=== PATIENT | female | born 1965 | race Caucasian/White ===

== ENCOUNTER 2016-03-14 05:58 | Emergency (ER) | payer BC ==
[~2016-03-14] VITALS: Ht 190.5 cm; Wt 113.7 kg
[~2016-03-14 05:58] MED LIST: ACTOS30 MG PO; ASCORBIC ACID500 M3 PO; AZELASTINE137 MCG/0. BOTH NARES; BENZONATATE100 MG PO; CYANOCOBAL1000 MCG/2 IM; DILAUDID4 MG PO; DuoNeb IH; ELIQUIS5 MG PO; ESTRACE42.5 GM VG; FLOVENT 11120 INHALA IH; FLOVENT 22120 INHALA IH; HYDROCODONE-CH473 ML PO; JANUMET 50/51 TABLET PO; MELOXICAM7.5 MG PO; METRONIDAZOLE45 G1 TP; MOBIC7.5 MG PO; NASONEX17 GM BOTH NARES; NASONEX17 GM NS; PANTOPRAZOLE SO40 MG PO; SINGULAIR10 MG PO; SPIRIVA RESPIMAT4 G1 IH; SPIRIVA1 INHALATI IH; SYNTHROID100 MCG PO; TYLENOL EXTRA500 MG PO; VITAMIN D31000 UNI2 PO; WARFARIN SODIUM1 MG PO; WARFARIN SODIUM5 MG PO; WARFARIN SODIUM6 MG PO; XANAX0.5 MG PO; XARELTO15 MG PO; XOPENEX HF200 INHALA IH; XOPENEX HFA15 GM IH; ZYRTEC10 M3 PO; prednisone PO
[2016-03-14 07:21] LABS: BASOPHIL COUNT 0.1 K/uL (0-0.1); EOSINOPHIL (%) 2.3 % (0-5); EOSINOPHIL COUNT 0.2 K/uL (0-0.3); HEMATOCRIT 36.7 % (36.0-46.0); IMMATURE GRANULOCYTE (%) 0.1 % (0.0-0.7); IMMATURE GRANULOCYTE COUNT 0.1 K/uL; LYMPHOCYTE COUNT 1.8 K/uL (1.0-2.8); MCH 27.8 PG (29.0-34.0); MCHC 34.1 G/DL (30.0-36.0); MCV 81.6 FL (83-99); MEAN PLAT.VOLUME 10.1 uM^3 (9.5-12.4); MONOCYTE (%) 6.7 % (3-12); MONOCYTE COUNT 0.5 K/uL (0-0.8); NEUTROPHIL (%) 65.1 % (45-76); NEUTROPHIL COUNT 4.7 K/uL (1.8-6.4); PLATELET COUNT 263 K/uL (156-360); RBC DIS.WIDTH-CV 13.3 % (11.8-14.6); RBC DIS.WIDTH-SD 38.5 % (39-53); WHITE BLOOD COUNT 7.3 K/uL (4.1-10.2)
[2016-03-14 07:37] LABS: TROP-I INTERPRETATION NEGATIVE; TROPONIN-I < 0.01 ng/mL (0.0-0.30)
[2016-03-14 07:49] LABS: ANION GAP 10 MEQ/L (2-14); CHLORIDE 105 MEQ/L (99-109); POTASSIUM 4.1 MEQ/L (3.7-5.4); SAMPLE HEMOLYSIS CHECK 0; SAMPLE ICTERIC CHECK 0; SAMPLE LIPEMIA CHECK 0; SODIUM 140 MEQ/L (136-147)
[2016-03-14 07:55] LABS: GFR ESTIMATE (CALCULATED) > 59 mL/min/; GLUCOSE 129 mg/dL (70-99); UREA NITROGEN (BUN) 12 mg/dL (9-23)
[2016-03-14] MEDS ORDERED: MEDROL DOSEPAK4 MG PO (10:22)
[2016-03-14 10:44] VITALS: BP 132/90
== END 2016-03-14 10:46 | disposition home or self-care (01) ==
LOC: EME 05:58
PROVIDERS: Emergency Medicine
DX: J40 Bronchitis, not specified as acute or chronic (principal); R06.2 Wheezing; E03.9 Hypothyroidism, unspecified; E11.9 Type 2 diabetes mellitus without complications; Z86.711 Personal history of pulmonary embolism; Z88.0 Allergy status to penicillin; Z88.1 Allergy status to other antibiotic agents
CPT/HCPCS: 71020; 71275; 80048; 83880; 84484; 85025; 93005; 99281; 99285

== ENCOUNTER 2017-02-28 09:38 | Emergency (ER) | payer BC ==
[~2017-02-28] VITALS: Ht 190.5 cm; Wt 112.8 kg
[~2017-02-28 09:38] MED LIST changes: +MEDROL DOSEPAK4 MG PO
[2017-02-28 10:32] LABS: BASOPHIL (%) 0.4 % (0-1); BASOPHIL COUNT 0.1 K/uL (0-0.1); EOSINOPHIL (%) 1.1 % (0-5); EOSINOPHIL COUNT 0.1 K/uL (0-0.3); HEMATOCRIT 35.4 % (36.0-46.0); HEMOGLOBIN 12.2 G/DL (11.9-15.5); IMMATURE GRANULOCYTE (%) 1.5 % (0.0-0.7); LYMPHOCYTE (%) 26.4 % (15-42); LYMPHOCYTE COUNT 3.1 K/uL (1.0-2.8); MCH 28.1 PG (29.0-34.0); MCHC 34.5 G/DL (30.0-36.0); MCV 81.6 FL (83-99); MONOCYTE (%) 6.5 % (3-12); MONOCYTE COUNT 0.8 K/uL (0-0.8); NEUTROPHIL (%) 64.1 % (45-76); NEUTROPHIL COUNT 7.5 K/uL (1.8-6.4); PLATELET COUNT 251 K/uL (156-360); RBC DIS.WIDTH-CV 13.1 % (11.8-14.6); RBC DIS.WIDTH-SD 38.7 % (39-53); RED BLOOD COUNT 4.34 M/uL (3.80-5.20); WHITE BLOOD COUNT 11.6 K/uL (4.1-10.2)
[2017-02-28 10:39] LABS: PTT 23.2 SEC (25-37)
[2017-02-28 10:43] LABS: CHLORIDE 105 mEq/L (99-109); POTASSIUM 3.4 mEq/L (3.7-5.4); SODIUM 140 mEq/L (136-147)
[2017-02-28 10:45] LABS: GLUCOSE 123 mg/dL (70-99)
[2017-02-28 10:49] LABS: CREATININE 0.7 mg/dL (0.6-1.3); GFR ESTIMATE (CALCULATED) > 59 mL/min/
[2017-02-28 10:50] LABS: UREA NITROGEN (BUN) 14 mg/dL (9-23)
[2017-02-28 10:51] LABS: TROP-I INTERPRETATION NEGATIVE; TROPONIN-I < 0.01 ng/mL (0.0-0.30)
[2017-02-28] MEDS ORDERED: JANUVIA100 MG PO (11:12)
[2017-02-28 13:54] VITALS: BP 141/98
== END 2017-02-28 14:04 | disposition home or self-care (01) ==
LOC: EME 09:38
PROVIDERS: Emergency Medicine
DX: J44.9 Chronic obstructive pulmonary disease, unspecified (principal); I27.20 Pulmonary hypertension, unspecified; Z86.718 Personal history of other venous thrombosis and embolism; N28.1 Cyst of kidney, acquired; E11.9 Type 2 diabetes mellitus without complications; E03.9 Hypothyroidism, unspecified; D51.0 Vitamin B12 deficiency anemia due to intrinsic factor deficiency; Z88.0 Allergy status to penicillin; Z88.1 Allergy status to other antibiotic agents
CPT/HCPCS: 71275; 80048; 84484; 85025; 85379; 85610; 85730; 93005; 94640; 99281; 99285; J7030

== ENCOUNTER 2017-07-24 02:21 | Inpatient (IN) | payer BC ==
[~2017-07-24] VITALS: Ht 190.5 cm; Wt 111.2 kg
[~2017-07-24 02:21] MED LIST changes: +JANUVIA100 MG PO
[2017-07-24 03:36] LABS: APPEARANCE CLEAR ((CLEAR)); BILIRUBIN NEGATIVE; BLOOD SMALL; COLOR YELLOW ((YELLOW)); GLUCOSE (STRIP) NEGATIVE; KETONES 5; LEUKOCYTES NEGATIVE; NITRITE NEGATIVE; PROTEIN (STRIP) 30; SPECIFIC GRAVITY 1.024 (1.000-1.030)
[2017-07-24 03:39] LABS: BACTERIA NONE SEEN /HPF; EPITHELIAL CELLS RARE /HPF; MUCUS NONE SEEN /LPF; RED BLOOD CELLS 0-5 /HPF (0-5); UCUL ADDED? NO; WHITE BLOOD CELLS 0-5 /HPF (0-5)
[2017-07-24 03:41] LABS: HEMATOCRIT 39.7 % (36.0-46.0); HEMOGLOBIN 13.7 G/DL (11.9-15.5); MCH 28.5 PG (29.0-34.0); MCHC 34.5 G/DL (30.0-36.0); MCV 82.7 FL (83-99); PLATELET COUNT 247 K/uL (156-360); RBC DIS.WIDTH-CV 12.8 % (11.8-14.6); RBC DIS.WIDTH-SD 38.5 % (39-53); WHITE BLOOD COUNT 17.2 K/uL (4.1-10.2)
[2017-07-24 03:53] LABS: ALBUMIN 4.2 g/dL (3.2-4.8); CHLORIDE 105 mEq/L (99-109); POTASSIUM 4.7 mEq/L (3.7-5.4); SODIUM 140 mEq/L (136-147)
[2017-07-24 03:55] LABS: GLUCOSE 191 mg/dL (70-99); TOTAL PROTEIN 7.4 g/dL (6.4-8.3)
[2017-07-24 03:57] LABS: TOTAL BILIRUBIN 1.2 mg/dL (0.0-1.0)
[2017-07-24 03:59] LABS: ALKALINE PHOSPHATASE 143 IU/L (3-129); CREATININE 0.9 mg/dL (0.6-1.3); GFR ESTIMATE (CALCULATED) > 59 mL/min/
[2017-07-24 04:00] LABS: UREA NITROGEN (BUN) 15 mg/dL (9-23)
[2017-07-24 04:01] LABS: AST (GOT) 42 IU/L (2-34)
[2017-07-24 04:02] LABS: ALT (GPT) 38 IU/L (3-49)
[2017-07-24 04:12] LABS: QUANTITATIVE HCG < 4.0 MIU/ML
[2017-07-24] MEDS ORDERED: FLONASE16 G1 BOTH NARES (07:28)
[2017-07-24] MEDS ORDERED: ACETAMINOPHEN325 M1 PO (07:28)
[2017-07-24 09:26] LABS: TROP-I INTERPRETATION NEGATIVE; TROPONIN-I < 0.01 ng/mL (0.0-0.30)
[2017-07-24 12:31] VITALS: BP 125/60
[2017-07-24 14:46] LABS: HEMOGLOBIN A1c (GLYCOHEMOGLOB) 6.9 % (Below 5.7)
[2017-07-24 15:28] VITALS: BP 123/68
[2017-07-24 19:45] VITALS: BP 129/72
[2017-07-25 00:41] VITALS: BP 130/62
[2017-07-25 04:40] VITALS: BP 111/64
[2017-07-25 05:52] LABS: ALBUMIN 3.4 G/DL (3.2-4.8); ALKALINE PHOSPHATASE 116 IU/L (3-129); ALT (GPT) 129 IU/L (3-49); AST (GOT) 103 IU/L (2-34); CHLORIDE 107 MEQ/L (99-109); CREATININE 0.6 MG/DL (0.6-1.3); GFR ESTIMATE (CALCULATED) > 59 mL/min/; GLUCOSE 121 mg/dL (70-99); MCH 27.9 PG (29.0-34.0); MCHC 33.4 G/DL (30.0-36.0); MCV 83.3 FL (83-99); PLATELET COUNT 203 K/uL (156-360); POTASSIUM 4.2 MEQ/L (3.7-5.4); RBC DIS.WIDTH-SD 39.4 % (39-53); SODIUM 142 MEQ/L (136-147); TOTAL BILIRUBIN 1.1 MG/DL (0.0-1.0); TOTAL PROTEIN 5.8 G/DL (6.4-8.3); UREA NITROGEN (BUN) 10 mg/dL (9-23); WHITE BLOOD COUNT 11.1 K/uL (4.1-10.2)
[2017-07-25 05:54] LABS: HEMOGLOBIN 11.7 G/DL (11.9-15.5)
[2017-07-25 08:39] VITALS: BP 125/76
[2017-07-25 11:00] VITALS: BP 117/77
[2017-07-25 15:14] VITALS: BP 136/69
[2017-07-25 20:15] VITALS: BP 123/85
[2017-07-26] VITALS (7 sets, daily range): BP systolic 121–141; BP diastolic 65–80
[2017-07-26 05:29] LABS: HEMATOCRIT 32.7 % (36.0-46.0); HEMOGLOBIN 11.2 G/DL (11.9-15.5); MCH 28.5 PG (29.0-34.0); MCHC 34.3 G/DL (30.0-36.0); MCV 83.2 FL (83-99); PLATELET COUNT 187 K/uL (156-360); RBC DIS.WIDTH-SD 39.8 % (39-53); RED BLOOD COUNT 3.93 M/uL (3.80-5.20); WHITE BLOOD COUNT 8.5 K/uL (4.1-10.2)
[2017-07-26 05:59] LABS: ALBUMIN 3.1 G/DL (3.2-4.8); ALKALINE PHOSPHATASE 102 IU/L (3-129); ALT (GPT) 79 IU/L (3-49); AST (GOT) 38 IU/L (2-34); CHLORIDE 110 MEQ/L (99-109); CREATININE 0.5 MG/DL (0.6-1.3); GFR ESTIMATE (CALCULATED) > 59 mL/min/; GLUCOSE 101 mg/dL (70-99); MAGNESIUM 1.5 mg/dl (1.3-2.7); POTASSIUM 3.6 MEQ/L (3.7-5.4); SODIUM 143 MEQ/L (136-147); TOTAL BILIRUBIN 0.7 MG/DL (0.0-1.0); TOTAL PROTEIN 5.5 G/DL (6.4-8.3); UREA NITROGEN (BUN) 10 mg/dL (9-23)
[2017-07-27 06:12] VITALS: BP 128/60
[2017-07-27 07:02] VITALS: BP 129/83
[2017-07-27 11:13] VITALS: BP 137/81
[2017-07-27 12:59] LABS: HEMATOCRIT 34.5 % (36.0-46.0); HEMOGLOBIN 11.6 G/DL (11.9-15.5); MCH 27.6 PG (29.0-34.0); MCHC 33.6 G/DL (30.0-36.0); MCV 82.1 FL (83-99); PLATELET COUNT 221 K/uL (156-360); RBC DIS.WIDTH-CV 12.7 % (11.8-14.6); RBC DIS.WIDTH-SD 38.3 % (39-53); WHITE BLOOD COUNT 6.1 K/uL (4.1-10.2)
[2017-07-27 13:23] LABS: ALBUMIN 3.5 G/DL (3.2-4.8); ALKALINE PHOSPHATASE 97 IU/L (3-129); ALT (GPT) 53 IU/L (3-49); AST (GOT) 22 IU/L (2-34); CHLORIDE 107 MEQ/L (99-109); CREATININE 0.6 MG/DL (0.6-1.3); GFR ESTIMATE (CALCULATED) > 59 mL/min/; GLUCOSE 123 mg/dL (70-99); MAGNESIUM 1.4 mg/dl (1.3-2.7); PHOSPHORUS 2.7 mg/dL (2.5-4.9); POTASSIUM 3.5 MEQ/L (3.7-5.4); SODIUM 141 MEQ/L (136-147); TOTAL BILIRUBIN 0.6 MG/DL (0.0-1.0); TOTAL PROTEIN 6.2 G/DL (6.4-8.3); UREA NITROGEN (BUN) 9 mg/dL (9-23)
[2017-07-27 15:19] VITALS: BP 128/82
[2017-07-27 20:01] VITALS: BP 129/70
[2017-07-27 23:40] VITALS: BP 143/70
[2017-07-28 05:03] VITALS: BP 129/79
[2017-07-28 05:19] LABS: BASOPHIL COUNT 0.1 K/uL (0-0.1); EOSINOPHIL (%) 1.2 % (0-5); EOSINOPHIL COUNT 0.1 K/uL (0-0.3); HEMATOCRIT 31.6 % (36.0-46.0); HEMOGLOBIN 10.7 G/DL (11.9-15.5); IMMATURE GRANULOCYTE (%) 0.6 % (0.0-0.7); LYMPHOCYTE (%) 19.5 % (15-42); MCH 27.9 PG (29.0-34.0); MCHC 33.9 G/DL (30.0-36.0); MCV 82.3 FL (83-99); MONOCYTE (%) 12.3 % (3-12); MONOCYTE COUNT 0.6 K/uL (0-0.8); NEUTROPHIL (%) 65.4 % (45-76); NEUTROPHIL COUNT 3.2 K/uL (1.8-6.4); PLATELET COUNT 196 K/uL (156-360); RBC DIS.WIDTH-CV 12.7 % (11.8-14.6); RBC DIS.WIDTH-SD 38.5 % (39-53); RED BLOOD COUNT 3.84 M/uL (3.80-5.20); WHITE BLOOD COUNT 4.9 K/uL (4.1-10.2)
[2017-07-28 05:53] LABS: CHLORIDE 106 MEQ/L (99-109); CREATININE 0.6 MG/DL (0.6-1.3); GFR ESTIMATE (CALCULATED) > 59 mL/min/; GLUCOSE 105 mg/dL (70-99); POTASSIUM 3.6 MEQ/L (3.7-5.4); SODIUM 142 MEQ/L (136-147); UREA NITROGEN (BUN) 8 mg/dL (9-23)
[2017-07-28 07:18] VITALS: BP 123/79
[2017-07-28 11:35] VITALS: BP 118/66
[2017-07-28 14:57] VITALS: BP 121/98
[2017-07-28 19:59] VITALS: BP 130/77
[2017-07-29 00:06] VITALS: BP 136/83
[2017-07-29 05:51] VITALS: BP 139/81
[2017-07-29 07:11] VITALS: BP 129/82
[2017-07-29 08:35] LABS: CHLORIDE 107 MEQ/L (99-109); CREATININE 0.5 MG/DL (0.6-1.3); GFR ESTIMATE (CALCULATED) > 59 mL/min/; GLUCOSE 104 mg/dL (70-99); POTASSIUM 3.4 MEQ/L (3.7-5.4); SODIUM 140 MEQ/L (136-147); UREA NITROGEN (BUN) 7 mg/dL (9-23)
[2017-07-29 11:55] VITALS: BP 137/84
[2017-07-29 14:18] LABS: C DIFF TOXIN NEGATIVE (NEGATIVE)
[2017-07-29 15:23] VITALS: BP 136/81
[2017-07-29 19:55] VITALS: BP 139/94
[2017-07-30 00:17] VITALS: BP 131/81
[2017-07-30 06:26] LABS: CHLORIDE 109 MEQ/L (99-109); CREATININE 0.5 MG/DL (0.6-1.3); GFR ESTIMATE (CALCULATED) > 59 mL/min/; GLUCOSE 95 mg/dL (70-99); POTASSIUM 3.4 MEQ/L (3.7-5.4); SODIUM 144 MEQ/L (136-147); UREA NITROGEN (BUN) 6 mg/dL (9-23)
[2017-07-30 06:32] VITALS: BP 139/78
[2017-07-30 08:08] VITALS: BP 142/79
[2017-07-30] MEDS ORDERED: CEFTIN500 MG PO (11:44)
== END 2017-07-30 12:37 | disposition home or self-care (01) | DRG 392 ==
LOC: EME 02:21 → ENRESERV 07:15 → EDOF 07:15 → 4EAST 07:15 → ENRESERV 11:15 → 4EAST 11:57 → ENPENDDIS 07-30 → 4EAST 07-30 12:37
PROVIDERS: Hospitalist; Internal Medicine; Physician Assistant; Surgery
DX: K57.00 Diverticulitis of small intestine with perforation and abscess without bleeding (principal); J98.11 Atelectasis; J45.20 Mild intermittent asthma, uncomplicated; I27.23 Pulmonary hypertension due to lung diseases and hypoxia; L50.0 Allergic urticaria; D51.0 Vitamin B12 deficiency anemia due to intrinsic factor deficiency; N28.1 Cyst of kidney, acquired; F41.9 Anxiety disorder, unspecified; T36.8X5A Adverse effect of other systemic antibiotics, initial encounter; Y92.230 Patient room in hospital as the place of occurrence of the external cause; E03.9 Hypothyroidism, unspecified; E11.9 Type 2 diabetes mellitus without complications; E66.9 Obesity, unspecified; R74.0 Nonspecific elevation of levels of transaminase and lactic acid dehydrogenase [LDH]; D72.829 Elevated white blood cell count, unspecified; Z79.51 Long term (current) use of inhaled steroids; Z87.442 Personal history of urinary calculi; Z90.710 Acquired absence of both cervix and uterus; Z90.49 Acquired absence of other specified parts of digestive tract; Z68.31 Body mass index [BMI] 31.0-31.9, adult; Z88.0 Allergy status to penicillin; Z79.84 Long term (current) use of oral hypoglycemic drugs; Z80.0 Family history of malignant neoplasm of digestive organs
CPT/HCPCS: 71046; 74177; 80048; 80053; 81003; 82948; 83036; 83605; 83690; 83735; 84100; 84484; 84702; 85025; 85027; 87040; 87493; 93005; 94640; 94640 76; 99202; 99281; 99285; J0744; J1170; J1650; J1815; J2405; J7030; J7050; S0028; S0030; S0073